=== PATIENT | female | born 1995 | race Caucasian/White ===

== ENCOUNTER 2016-11-03 10:52 | Inpatient (IN) | payer MEDICAID ==
[~2016-11-03] VITALS: Ht 157.5 cm; Wt 80.1 kg
[2016-11-03 11:09] VITALS: Ht 157.5 cm; Wt 80.1 kg
[2016-11-03 11:10] VITALS: BP 114/63; PULSE 76
[2016-11-03] MEDS ORDERED: LACTATED RINGER'S 1,000 ML IV SCH (12:00)
[2016-11-03] MEDS ORDERED: MISOPROSTOL 200 MCG TAB PR PRN (15:00)
[2016-11-03] MEDS ORDERED: CARBOPROST 250 MCG INJ IM PRN (15:00)
[2016-11-03] MEDS ORDERED: METHYLERGONOVINE 0.2 MG INJ IM PRN (15:00)
[2016-11-03] MEDS ORDERED: OXYTOCIN 30 UNITS/LR 500 ML IV SCH (15:00)
[2016-11-03] MEDS ORDERED: OXYTOCIN 30 UNITS/LR 500 ML IV PRN (15:00)
[2016-11-03] MEDS ORDERED: CEFAZOLIN 2 GM/50 ML (PMX) 50 ML IV SCH (15:00)
[2016-11-03 15:46] LABS: BASOPHILS % 0.1 % (0.0-2.0); EOSINOPHILS % 0.3 % (0.0-7.0); HEMATOCRIT 32.6 % (37.0-47.0); HEMOGLOBIN 9.6 g/dl (12.0-16.0); LYMPHOCYTES # 2.2 10^3/ul (0.8-2.9); LYMPHOCYTES % 22.6 % (15.0-51.0); MEAN CORPUSCULAR HEMOGLOBIN 21.7 pg (29.0-33.0); MEAN CORPUSCULAR HGB CONC 29.4 g/dl (32.0-37.0); MEAN CORPUSCULAR VOLUME 73.6 fl (82.0-101.0); MEAN PLATELET VOLUME 11.2 fl (7.4-10.4); MONOCYTE # 0.8 10^3/ul (0.3-0.9); MONOCYTES % 7.9 % (0.0-11.0); NEUTROPHIL # 6.7 10^3/ul (1.6-7.5); NEUTROPHILS % 68.6 % (39.0-77.0); PLATELET COUNT 395 10^3/UL (140-415); RED BLOOD COUNT 4.43 10^6/ul (4.20-5.40); RED CELL DISTRIBUTION WIDTH 19.9 % (11.5-14.5); WHITE BLOOD COUNT 9.8 10^3/ul (4.8-10.8)
[2016-11-03] MEDS: LACTATED RINGER'S 1,000 ML IV SCH ×2 (15:48→18:50)
[2016-11-03 16:04] LABS: INR 0.91; PARTIAL THROMBOPLASTIN TIME 28.4 Sec (25.0-35.0); PROTIME 12.2 Sec (12.2-14.2)
[2016-11-03] MEDS ORDERED: LACTATED RINGER'S 1,000 ML IV ONE (18:11)
[2016-11-03] MEDS ORDERED: CITRIC ACID/NA CITRATE 30 ML CUP PO ONE (18:30)
[2016-11-03] MEDS ORDERED: ONDANSETRON 4 MG INJ IV ONE (18:30)
[2016-11-03] MEDS ORDERED: morphine SULFATE/PF (10 MG/10 ML) INJ ONE (19:48)
[2016-11-03] MEDS ORDERED: FENTAnyl 50 MCG/ML VIAL ONE (19:48)
[2016-11-03] MEDS ORDERED: CEFAZOLIN 1 GM INJ ONE (20:00)
[2016-11-03] MEDS ORDERED: OXYTOCIN 30 UNITS/LR 500 ML IV ONE (20:03)
[2016-11-03] MEDS ORDERED: METOCLOPRAMIDE 10 MG INJ ONE (20:03)
[2016-11-03] MEDS ORDERED: PHENYLephrine (100 MCG/ML) 5ML SYG ONE (20:05)
[2016-11-03] MEDS ORDERED: NALOXONE (0.4 MG/ML) INJ IV PRN (21:30)
[2016-11-03] MEDS ORDERED: ONDANSETRON 4 MG INJ IV PRN (21:30)
[2016-11-03] MEDS ORDERED: HYDROmorphONE 1 MG/ML SYG IV PRN ×2 (21:30)
[2016-11-03] MEDS ORDERED: DIPHENHYDRAMINE 50 MG INJ IV PRN (21:30)
[2016-11-03] MEDS ORDERED: TRIMETHOBENZAMIDE 100 MG/ML VIAL IM PRN (21:30)
[2016-11-03] MEDS ORDERED: NALBUPHINE HCL (10 MG/1 ML) INJ IV PRN (21:30)
--- NOTE | 2016-11-03 22:11 | OPR ---
DATE OF OPERATION: 11/03/2016 PREOPERATIVE DIAGNOSIS: at 37 weeks, with previous section, and labor contractions. Voluntary sterilization. POSTOPERATIVE DIAGNOSIS: at 37 weeks, with previous section, and labor contractions. Voluntary sterilization. OPERATION PERFORMED: Repeat low transverse section and bilateral tubal ligation. SURGEON: Milton Fowler MD READING RECOVERY TEACHER: Dr. Stevens. ANESTHESIA: Spinal. ANESTHESIOLOGIST: OPERATIVE PROCEDURE: Patient was taken to the operating room, placed on the operating table. After successful spinal anesthesia was given the patient was placed in the supine position. The area was prepared and draped in the usual sterile fashion. Spinal anesthesia was tested and was satisfactory. Using scalpel, a Pfannenstiel incision was made about 2 fingerbreadths above the symphysis pubis. The incision was carried to the fascia. The fascia was incised and extended bilaterally with Marsh scissors. Two Asif's were used to separate the fascia from the muscle. The muscle was dissected down to peritoneum. The peritoneum was dissected with 2 Kellys and incised with Metzenbaum scissors. Using a scalpel, a small transverse incision was made in the lower segment of the uterus. Upon entering the uterine the bandage scissors was inserted to extend the incision bilaterally curved up. The baby was delivered from cephalic presentation. After suctioning and clear of amniotic fluid the baby was handed off to the team in attendance. Apgars were 9 and 9. The placenta was delivered without difficulty. The uterus was closed with number 1 Monocryl continuous locked. After assuring hemostasis, both ovaries and tubes were inspected. All looked normal. The right fallopian tube was grasped with a Simran clamp. Using 0 plain suture ligature a 5 cm segment of the right fallopian tube was doubly ligated. Using Metzenbaum scissors a portion of the right fallopian tube above the ligated area was excised and sent to pathology. The same procedure was repeated on the left fallopian tube. After assuring hemostasis, the peritoneal cavity was irrigated with warm saline. The peritoneum was closed with 2-0 Vicryl continuous. The fascia was closed with number 1 Vicryl continuous in 2 segments. The subcutaneous tissue was reapproximated with 2-0 plain and the skin was closed with falguni. ESTIMATED BLOOD LOSS: 500 cc. All counts were correct. Dictated By: Milton Fowler MD /sangita/thad /Document#: [id number]
--- NOTE | 2016-11-03 22:29 | PREOPHP ---
DATE OF ADMISSION: 11/03/2016 HISTORY OF PRESENT ILLNESS: A 21-year-old female, 2, para 1, estimated date of delivery of November 16, 2016 at 37 weeks. The patient presented with regular contractions. PAST MEDICAL HISTORY: Unremarkable. PAST SURGICAL HISTORY: section. ALLERGIES: NO KNOWN ALLERGIES. FAMILY HISTORY: Noncontributory. PHYSICAL EXAMINATION: VITAL SIGNS: The patient is afebrile. Vital signs stable. NECK: Within normal limits. CHEST: Within normal limits. ABDOMEN: Soft, nontender, and gravid. EXTREMITIES: Within normal limits. NEUROLOGIC: Within normal limits. IMAGING STUDIES: On external monitor contractions are noted. IMPRESSION: at 37 weeks with previous section and regular contractions. The patient desires surgical sterilization. PLAN: The patient is admitted for repeat section and bilateral tubal ligation. Risks, benefits, and alternatives of procedures were explained to the patient. The patient has been counseled about all of her contraceptive options including all methods of sterilization. It was explained to the patient that with bilateral tubal ligation there is a chance of failure resulting in ectopic and intrauterine . After counseling the patient, she said she understood and gave informed consent for the procedures. Dictated By: Milton Fowler MD /sangita/laney /Document#: [id number]
[2016-11-03] MEDS: KETOROLAC 30 MG INJ IV PRN (23:16)
[2016-11-03 23:25] VITALS: BP 119/80; PULSE 74; RESP 18
[2016-11-03 23:35] VITALS: BP 119/80; PULSE 74; RESP 18
[2016-11-04] MEDS: LACTATED RINGER'S 1,000 ML IV SCH ×3 (00:18→18:48)
[2016-11-04] MEDS ORDERED: MISOPROSTOL 200 MCG TAB PR PRN (00:30)
[2016-11-04] MEDS ORDERED: OXYTOCIN 30 UNITS/LR 500 ML IV PRN (00:30)
[2016-11-04] MEDS ORDERED: CARBOPROST 250 MCG INJ IM PRN (00:30)
[2016-11-04] MEDS ORDERED: OXYCODONE/ACETAMINOPHEN (5/325) TAB PO PRN (00:30)
[2016-11-04] MEDS ORDERED: METHYLERGONOVINE 0.2 MG INJ IM PRN (00:30)
[2016-11-04] MEDS ORDERED: LANOLIN 7 GM TUBE TOP PRN (00:30)
[2016-11-04] MEDS: OXYTOCIN 30 UNITS/LR 500 ML IV SCH ×2 (01:23→05:04)
[2016-11-04 04:00] VITALS: BP 109/53; PULSE 87; RESP 17
[2016-11-04 08:00] VITALS: BP 102/57; PULSE 73; RESP 18
[2016-11-04] MEDS: SENNA/DOCUSATE NA (8.6MG/50MG) TAB PO SCH ×2 (09:21→20:54)
[2016-11-04 10:21] LABS: BASOPHILS % 0.2 % (0.0-2.0); EOSINOPHILS % 0.3 % (0.0-7.0); HEMATOCRIT 33.4 % (37.0-47.0); HEMOGLOBIN 9.8 g/dl (12.0-16.0); LYMPHOCYTES # 1.4 10^3/ul (0.8-2.9); LYMPHOCYTES % 11.7 % (15.0-51.0); MEAN CORPUSCULAR HEMOGLOBIN 21.4 pg (29.0-33.0); MEAN CORPUSCULAR HGB CONC 29.3 g/dl (32.0-37.0); MEAN CORPUSCULAR VOLUME 72.9 fl (82.0-101.0); MEAN PLATELET VOLUME 11.5 fl (7.4-10.4); MONOCYTE # 1.1 10^3/ul (0.3-0.9); MONOCYTES % 9.2 % (0.0-11.0); NEUTROPHIL # 9.6 10^3/ul (1.6-7.5); NEUTROPHILS % 78.2 % (39.0-77.0); PLATELET COUNT 382 10^3/UL (140-415); RED BLOOD COUNT 4.58 10^6/ul (4.20-5.40); RED CELL DISTRIBUTION WIDTH 19.6 % (11.5-14.5); WHITE BLOOD COUNT 12.2 10^3/ul (4.8-10.8)
[2016-11-04 12:00] VITALS: BP 99/64; PULSE 78; RESP 16
[2016-11-04 16:00] VITALS: BP 95/54; PULSE 76; RESP 18
[2016-11-04] MEDS: KETOROLAC 30 MG INJ IV PRN (18:47)
[2016-11-04 20:00] VITALS: BP 112/72; PULSE 78; RESP 18
--- NOTE | 2016-11-04 20:27 | QN ---
Documentation Comment No complaint Afebrile VSS Abdomen soft ND POD #1 Stable Ambulate Advance diet. SARTHAK ARZOLA MD Nov 04, 2016 20:27
[2016-11-04] MEDS: IBUPROFEN 800 MG TAB PO SCH (22:00)
[2016-11-05 04:00] VITALS: BP 97/51; PULSE 91; RESP 18
[2016-11-05] MEDS: OXYCODONE/ACETAMINOPHEN (5/325) TAB PO PRN ×4 (04:48→15:22)
[2016-11-05] MEDS: IBUPROFEN 800 MG TAB PO SCH ×3 (06:26→22:46)
[2016-11-05 08:25] VITALS: BP 99/54; PULSE 75; RESP 18
[2016-11-05] MEDS: SENNA/DOCUSATE NA (8.6MG/50MG) TAB PO SCH ×2 (10:52→21:04)
[2016-11-05 16:17] VITALS: BP 131/77; PULSE 69; RESP 18
[2016-11-05] MEDS ORDERED: IBUP800T25 PO (19:20)
--- NOTE | 2016-11-05 19:22 | DS ---
Date/Time of Note Date/Time of Note DATE: 11/05/16 TIME: 19:21 Obstetrical Discharge Record Final Diagnosis Final Diagnosis: Term delivered Vaginal Delivery Obstetrical Delivery: Bilateral Tubal Ligation Section Section: Repeat Condition on Discharge Physical Assessment Voiding: Yes Bowel Movement: Yes Breast: Soft, non-tender Fundus: Firm Abdomen and Incision: Incision intact Calf Tenderness: No Patient Condition: Stable SARTHAK ARZOLA MD Nov 05, 2016 19:22
[2016-11-05 20:31] VITALS: BP 124/71; PULSE 83; RESP 20
[2016-11-06 04:00] VITALS: BP 111/56; PULSE 69; RESP 18
[2016-11-06] MEDS: IBUPROFEN 800 MG TAB PO SCH (06:39)
[2016-11-06 07:30] VITALS: BP 118/81; PULSE 86; RESP 18
[2016-11-06] MEDS ORDERED: DIPHTH/TET/ACEL PERTUSS (ADULT) 0.5 ML VIAL IM* ONE (09:00)
[2016-11-06] MEDS: SENNA/DOCUSATE NA (8.6MG/50MG) TAB PO SCH (09:33)
[2016-11-06] MEDS: OXYCODONE/ACETAMINOPHEN (5/325) TAB PO PRN (11:36)
== END 2016-11-06 18:12 | disposition home or self-care (01) | DRG 766 ==
LOC: OBT 10:52 → L-D 10:55 → OBT 14:26 → L-D 14:27 → PP1 23:34
PROVIDERS: ADMIT Obstetrics & Gynecology; ATTEND Obstetrics & Gynecology
PROC: 0UL70ZZ Occlusion of Bilateral Fallopian Tubes, Open Approach (ICD-10-PCS; 2016-11-03)
PROC: 3E033VJ Introduction of Other Hormone into Peripheral Vein, Percutaneous Approach (ICD-10-PCS; 2016-11-03)
PROC: 10D00Z1 Extraction of Products of Conception, Low, Open Approach (ICD-10-PCS; principal; 2016-11-03 20:00)
DX: O34.211 Maternal care for low transverse scar from previous cesarean delivery (principal); Z30.2 Encounter for sterilization; Z3A.37 37 weeks gestation of pregnancy; Z37.0 Single live birth
CPT/HCPCS: 36415; 85025; 85610; 85730; 86592; 86850; 86900; 86901; 88302; 90715; 94760; 96360; 96361; 99464; G0463; J0690; J1885; J2274; J2370; J2405; J2590; J2765; J3010; J7120